=== PATIENT | female | born 1980 | race Hispanic/Latino ===

== ENCOUNTER 2016-08-27 14:36 | Emergency (ER) | payer BC ==
[2016-08-27 14:44] VITALS: BP 124/78; PULSE 66; RESP 16; TEMP 98.7; O2SAT 99
[2016-08-27] MEDS ORDERED: TDAP Vaccine 0.5 mL Syr IM ONE (14:49)
--- NOTE | 2016-08-27 14:53 | ED PDOC ---
Upper Extremity Pain/Injury Time Seen by Provider: 08/27/16 14:50 Chief Complaint (Nursing): Upper Extremity Problem/Injury Chief Complaint (Provider): WRIST INJURY History Per: Patient (36 Y/O FEMALE HERE WITH LEFT WRIST INJURY THAT OCCURRED TODAY WHEN WRIST GOT CAUGHT IN FENCE. STATES HER DOG GOT EXCITED DURING WALK AND ABRUPT MOVEMENT CAUSED HER TO HAVE WRIST CAUGHT IN FENCE. IS RIGHT HAND DOMINANT OTHERWISE. UNCLEAR TETATNUS STATUS.) Past Medical History Reviewed: Historical Data, Nursing Documentation, Vital Signs Vital Signs: Last Vital Signs Temp 98.7 F 08/27/16 14:40 Pulse 66 08/27/16 14:40 Resp 16 08/27/16 14:40 BP 124/78 08/27/16 14:40 Pulse Ox 99 08/27/16 14:40 - Medical History PMH: Anxiety - Family History Family History: States: Unknown Family Hx - Immunization History Hx Tetanus Toxoid Vaccination: No Hx Influenza Vaccination: Yes Hx Pneumococcal Vaccination: No - Home Medications Home Medications: Ambulatory Orders Medication Instructions Recorded ALPRAZolam [Xanax] 0.25 mg PO PRN PRN 07/16/15 Cephalexin [Keflex] 500 mg PO QID #28 cap 07/16/15 Fluconazole [Diflucan] 150 mg PO ONCE #1 tab 07/16/15 traMADol [Ultram] 25 mg PO PRN PRN 07/16/15 Naproxen [Naprosyn Tab] 1 tab PO Q8 PRN #21 tab 08/27/16 - Allergies Allergies/Adverse Reactions: Allergies Allergy/AdvReac Type Severity Reaction Status Date / Time No Known Allergies Allergy Verified 07/16/15 16:03 Review of Systems ROS Statement: Except As Marked, All Systems Reviewed And Found Negative Physical Exam - Reviewed Nursing Documentation Reviewed: Yes Vital Signs Reviewed: Yes - Physical Exam Appears: Positive for: Well, Non-toxic, No Acute Distress Head Exam: Positive for: ATRAUMATIC, NORMAL INSPECTION, NORMOCEPHALIC Skin: Positive for: Normal Color, Warm, DRY Eye Exam: Positive for: EOMI, Normal appearance, PERRL ENT: Positive for: Normal ENT Inspection Neck: Positive for: Normal, Painless ROM Cardiovascular/Chest: Positive for: Regular Rate, Rhythm Respiratory: Positive for: CNT, Normal Breath Sounds Gastrointestinal/Abdominal: Positive for: Normal Exam, Bowel Sounds, Soft Back: Positive for: Normal Inspection Extremity: Negative for: Normal ROM (LIMITED DUE TO PAIN. SWELLING NOTED VOLAR SURFACE OF WRIST. (+) ABRASION DORSUM OF DISTAL FOREARM.) Neurologic/Psych: Positive for: Alert, Oriented - ECG O2 Sat by Pulse Oximetry: 99 - Progress ED Course And Treament: MOTRIN 600MG X 1 DOSE TDAP 0.5 ML IM X 1 DOSE XRY OF WRIST: NO ACUTE FX PATIENT RE-EVALUATED. MILD DISCOMFORT NOTED SNUFFBOX REGION. PLACED IN THUMB SPICA SPLINT. D/W HER F/U WITH ORTHO FOR FURTHER EVALUATION OF OCCULT SCAPHOID FX. Disposition - Clinical Impression Clinical Impression: Wrist injury - Patient ED Disposition Is Patient to be Admitted: No - Disposition Referrals: Jacek Rose III, MD [Staff Provider] - Disposition: Routine/Home Disposition Time: 15:49 Condition: FAIR Prescriptions: Naproxen [Naprosyn Tab] 1 tab PO Q8 PRN #21 tab PRN Reason: Pain, Moderate (4-7) Instructions: Wrist Injury (ED) Forms: [facility] ED School/Work Excuse
--- NOTE | 2016-08-27 15:12 | RAD ---
PROCEDURE: Left wrist dated 08/27/2016. Three views left wrist performed. HISTORY: Wrist injury. COMPARISON: No prior FINDINGS: BONES: No evidence of acute displaced fracture nor dislocation. The osseous structures appear intact. JOINTS: Joint spaces preserved. No dislocation or significant subluxation. Negative ulnar variance. SOFT TISSUES: Normal. OTHER FINDINGS: None. IMPRESSION: No evidence of acute displaced fracture nor dislocation. If symptoms persist or occult fracture suspected clinically recommend repeat radiographs 5-10 days as most fractures should become radiographically evident in this timeframe.
== END 2016-08-27 16:08 | disposition home or self-care (01) ==
LOC: H.ER 14:36
DX: S69.92XA Unspecified injury of left wrist, hand and finger(s), initial encounter (principal); W22.8XXA Striking against or struck by other objects, initial encounter; Y92.89 Other specified places as the place of occurrence of the external cause; F41.9 Anxiety disorder, unspecified